=== PATIENT | female | born 1975 | race Caucasian/White ===

== ENCOUNTER → 2016-06-02 | Outpatient (CLI) | payer BC ==
[~2016-06-02] MED LIST: ACET-62 PO; BUSP10TA3 PO; CLON2TAB4 PO; CYCL-375 PO; DULO60CA56 PO; HYDR-4078 PO; IBUP200C5 PO; RISP2TAB22 PO
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
--- NOTE | 2016-06-02 16:37 | DI ---
Indication: ITS.REASON: M54.5 LOW BACK PAIN; M54.40 Lumbago with sciatica, unspecified si PROCEDURE: MRI LUMBAR SPINE W/O CONTRAST: Encounter: Initial Comparison: None Technique: Multiplanar multisequence MR imaging of the lumbar spine was performed without contrast. Findings: Alignment of the lumbar spine is within normal limits. Vertebral body heights are normal. Bone marrow signal intensity is normal. Conus medullaris terminates normally at L1. The paraspinal soft tissues are within normal limits. Segmental analysis: L1-L2: Normal L2-L3: Normal L3-L4: Normal L4-L5: Mild disk desiccation with a small central disk protrusion. No central canal stenosis. No neural foraminal stenosis. Minimal degenerative facet change. L5-S1: Normal. Impression: Mild degenerative disk disease at L4-L5. .
== END ==
LOC: IMA 14:09
PROVIDERS: ATTEND Family Medicine
DX: M51.16 Intervertebral disc disorders with radiculopathy, lumbar region (principal); M50.322 Other cervical disc degeneration at C5-C6 level